=== PATIENT | male | born 1990 | race Caucasian/White ===

== ENCOUNTER 2016-06-02 15:36 | Emergency (ER) ==
[2016-06-02 15:40] VITALS: BP 152/91; TEMP 100.1; BMI 25.7
[2016-06-02] MEDS ORDERED: LIDOCAINE 1 % AMP 5 ML (SUTURES) SUBCUT STA (15:42)
--- NOTE | 2016-06-02 16:31 | ED.PDOC ---
General ED Provider: Dr. ROMY BARRETT JR Chief Complaint: Hand Laceration Stated Complaint: PATIENT WAS CUTTING OFF AN EXHAUST PIPE AND IT FELL OFF STIKING LEFT HAND. HAS 1.5CM LACERATION TO BACK OF LEFT HAND[End]45 min 100.1 95 20 97% 152/91 5/10 : 2 YEARS AGO WAS GIVEN TDAP 1.5 CM Time Seen by Physician: 16:31 Mode of Arrival: Walk-In Information Source: Patient Exam Limitations: No limitations Nursing and Triage Documentation Reviewed and Agree: No Review of Systems - Review Of Systems Constitutional: Reports: No symptoms Eyes: Reports: No symptoms Ears, Nose, Mouth, Throat: Reports: No symptoms Respiratory: Reports: No symptoms Cardiac: Reports: No symptoms GI: Reports: No symptoms : Reports: No symptoms Musculoskeletal: Reports: No symptoms Skin: Reports: Lesions (lac) Neurological: Reports: No symptoms Endocrine: Reports: No symptoms Hematologic/Lymphatic: Reports: No symptoms All Other Systems: Other Past Medical History - Past Medical History Previously Healthy: Yes Endocrine: Reports: None Cardiovascular: Reports: None Respiratory: Reports: None Hematological: Reports: None Gastrointestinal: Reports: None Genitourinary: Reports: None Neuro/Psych: Reports: None Musculoskeletal: Reports: None Cancer: Reports: None - Surgical History General Surgical History: Reports: None - Family History Family History: Reports: Unknown (note 2 yo daughter) - Social History Smoking Status: Never smoker Hx Substance Use: No Alcohol Screening: Occasionally - Immunizations Tetanus Shot up to Date: Yes (2 YEARS AGO WAS GIVEN TDAP) Physical Exam - Physical Exam Appearance: Well-appearing Pain Distress: Mild Skin: Warm, Dry, Normal color (lac) Procedures - Laceration/Wound Repair No standard instances Wound Description: Linear Wound Length (cm): 1.5cm Wound Explored: Clean Wound Irrigated: Yes Wound Prep: Hibiclens Wound Repaired With: Sutures Suture Size and Type: 4-0 nylon Number of Sutures: 4 Critical Care Note - Critical Care Note Total Time (mins): 0 Course - Course Orders, Labs, Meds: Orders Category Date Time Status Lidocaine HCl/Pf [Lidocaine 1 % Amp 5 ml (Sutures)] MEDS 06/02/16 15:42 Discontinued 5 ml SUBCUT ONCE STA Medications Discontinued Medications Generic Name Dose Route Start Last Admin Trade Name Freq PRN Reason Stop Dose Admin Lidocaine HCl 5 ml 06/02/16 15:42 Lidocaine 1 % Amp 5 Ml (Sutures) SUBCUT 06/02/16 15:43 ONCE STA Vital Signs: Temp Pulse Resp BP Pulse Ox 06/02/16 15:37 100.1 F H 95 H 20 152/91 H 97 Departure - Departure Time of Disposition: 16:35 Disposition: HOME SELF-CARE Discharge Problem: Laceration of hand Instructions: Laceration (ED), Care For Your Stitches (ED) Condition: Good Pt referred to PMD for follow-up: Yes Additional Instructions: clean and dry for three days then may clean off with peroxide sutures out in seven days return if red swollen tender draining Allergies/Adverse Reactions: Allergies No Known Allergies Allergy (Unverified 06/02/16 15:40) Home Medications: Ambulatory Orders 1 [No Reported Medications] 06/02/16
== END 2016-06-02 16:54 | disposition home or self-care (01) ==
LOC: ED 15:36
DX: S61.412A Laceration without foreign body of left hand, initial encounter (principal); W45.8XXA Other foreign body or object entering through skin, initial encounter
CPT/HCPCS: 99283